=== PATIENT | female | born 2000 | race Caucasian/White ===

== ENCOUNTER → 2018-10-16 | Outpatient (CLI) | payer OTHER | LOC: COL.RAD 11:07 | DX: S32.039A Unspecified fracture of third lumbar vertebra, initial encounter for closed fracture (principal); W19.XXXA Unspecified fall, initial encounter ==

== ENCOUNTER 2020-12-22 18:07 | Emergency (ER) | payer BC ==
[~2020-12-22] VITALS: Ht 167.6 cm; Wt 122.7 kg
[2020-12-22 18:21] VITALS: BP 138/89; TEMP 98.3
[2020-12-22] MEDS ORDERED: QUALITY CHOI500 U/GM TOP (19:34)
[2020-12-22 20:00] VITALS: PULSE 88
== END 2020-12-22 20:00 | disposition home or self-care (01) ==
LOC: COL.ER 18:07
DX: R21 Rash and other nonspecific skin eruption (principal); F17.210 Nicotine dependence, cigarettes, uncomplicated

== ENCOUNTER 2021-04-29 09:29 | Emergency (ER) | payer BC ==
[~2021-04-29] VITALS: Ht 167.6 cm; Wt 120.5 kg
[~2021-04-29 09:29] MED LIST: QUALITY CHOI500 U/GM TOP
[2021-04-29 09:38] VITALS: TEMP 98.8
[2021-04-29 11:33] VITALS: BP 154/99; PULSE 85
== END 2021-04-29 11:35 | disposition home or self-care (01) ==
LOC: COL.ER 09:29
DX: R51.9 Headache, unspecified (principal); F17.210 Nicotine dependence, cigarettes, uncomplicated; Z20.822 Contact with and (suspected) exposure to COVID-19
CPT/HCPCS: J1885

== ENCOUNTER 2022-02-21 23:40 | Emergency (ER) | payer BC ==
[~2022-02-21] VITALS: Ht 167.6 cm; Wt 109.1 kg
[2022-02-21 23:53] VITALS: TEMP 98.9
[2022-02-22 00:37] LABS: COLLECTION METHOD CLEAN CATCH
[2022-02-22 00:44] LABS: MUCOUS Present (NOT PRESENT); PH 5 (5-8); SQUAMOUS EPITHELIAL 0-2 /hpf (0-10); URINE APPEARANCE Hazy (CLEAR/HAZY); URINE BACTERIA None Seen /hpf (NONE SEEN); URINE BILIRUBIN Negative (NEGATIVE); URINE BLOOD 1+ (NEGATIVE); URINE COLOR Yellow (YELLOW); URINE GLUCOSE Negative (NEGATIVE); URINE KETONE Negative (NEGATIVE); URINE LEUKOCYTE ESTERASE 2+ (NEGATIVE); URINE NITRATE Negative (NEGATIVE); URINE PROTEIN(semi-quant) Negative (NEGATIVE); URINE RBC 20-50 /hpf (0-2); URINE UROBILINOGEN Negative (NEGATIVE)
[2022-02-22] MEDS ORDERED: BACTRIM DS 8001 TAB PO (00:56)
[2022-02-22 01:09] VITALS: BP 144/93; PULSE 120
[2022-02-22] MEDS ORDERED: DOXYCYCLINE 10100 MG PO (07:37)
[2022-02-24] MEDS ORDERED: AMOXICILLIN 8751 TAB PO (11:32)
== END 2022-02-22 01:09 | disposition home or self-care (01) ==
LOC: COL.ER 23:40
PROVIDERS: Physician Assistant
DX: N76.4 Abscess of vulva (principal); N39.0 Urinary tract infection, site not specified; R59.0 Localized enlarged lymph nodes; F17.210 Nicotine dependence, cigarettes, uncomplicated; Z32.02 Encounter for pregnancy test, result negative; Z28.310 Unvaccinated for COVID-19

== ENCOUNTER → 2022-02-22 | Outpatient (CLI) | payer BC ==
[~2022-02-22] MED LIST changes: +AMOXICILLIN 8751 TAB PO; +BACTRIM DS 8001 TAB PO; +DOXYCYCLINE 10100 MG PO
[2022-02-22 15:34] VITALS: BP 135/88; PULSE 101; TEMP 98.4
== END ==
LOC: COL.ER 07:45
DX: R69 Illness, unspecified (principal); Z28.310 Unvaccinated for COVID-19
CPT/HCPCS: J0696